=== PATIENT | male | born 1960 | race Caucasian/White ===

== ENCOUNTER 2021-01-18 10:38 | Emergency (ER) | payer OTHER ==
[~2021-01-18] VITALS: Ht 180.3 cm; Wt 90.7 kg
[2021-01-18 11:04] VITALS: BP_SYST 181
[2021-01-18] MEDS ORDERED: KETOROLAC TROMETHAMINE 60 MG/2 ML VIAL IM ONE (11:15)
[2021-01-18] MEDS ORDERED: TRAM50TA2 PO (12:02)
[2021-01-18 12:15] VITALS: BP_SYST 181
== END 2021-01-18 12:25 | disposition home or self-care (01) ==
LOC: SED 10:38
DX: R10.9 Unspecified abdominal pain (principal); Z88.0 Allergy status to penicillin
CPT/HCPCS: 74018; 96372; 99283; J1885